=== PATIENT | female | born 1980 | race Caucasian/White ===

== ENCOUNTER 2021-08-01 14:48 | Outpatient (CLI) | payer OTHER | END 2021-08-01 14:49 | disposition home or self-care (01) | LOC: BICMAMMO 14:48 | PROVIDERS: ATTEND Nurse Practitioner Family | DX: Z09 Encounter for follow-up examination after completed treatment for conditions other than malignant neoplasm (principal); N63.20 Unspecified lump in the left breast, unspecified quadrant; N64.4 Mastodynia; R92.1 Mammographic calcification found on diagnostic imaging of breast; Z98.82 Breast implant status | CPT/HCPCS: 77066; G0279 ==

== ENCOUNTER 2021-08-30 07:36 | Outpatient (CLI) | payer OTHER ==
[2021-08-30] MEDS ORDERED: Iopamidol-370 76% 500 ML 1 ML ONE (09:49)
== END 2021-08-30 07:37 | disposition home or self-care (01) ==
LOC: BICCT 07:36
PROVIDERS: ATTEND Nurse Practitioner Family
DX: Z09 Encounter for follow-up examination after completed treatment for conditions other than malignant neoplasm (principal); N20.0 Calculus of kidney; K59.09 Other constipation; R31.9 Hematuria, unspecified; R10.84 Generalized abdominal pain; K44.9 Diaphragmatic hernia without obstruction or gangrene
CPT/HCPCS: 74177; Q9967

== ENCOUNTER 2023-03-11 14:24 | Outpatient (CLI) | payer BC | END 2023-03-11 14:25 | disposition home or self-care (01) | LOC: ULT 14:24 | PROVIDERS: ATTEND Family Medicine | DX: E04.1 Nontoxic single thyroid nodule (principal); E04.2 Nontoxic multinodular goiter | CPT/HCPCS: 76536 ==

== ENCOUNTER → 2023-04-28 | Day surgery (SDC) | payer BC | END | disposition home or self-care (01) | LOC: ULT 08:00 | PROVIDERS: ATTEND Student in an Organized Health Care Education/Training Program | PROC: 0GBG3ZX Excision of Left Thyroid Gland Lobe, Percutaneous Approach, Diagnostic (ICD-10-PCS; principal; 2023-04-28) | DX: E04.1 Nontoxic single thyroid nodule (principal); F41.0 Panic disorder [episodic paroxysmal anxiety]; Z87.891 Personal history of nicotine dependence; Z88.5 Allergy status to narcotic agent; Z87.59 Personal history of other complications of pregnancy, childbirth and the puerperium; Z98.890 Other specified postprocedural states; Z79.899 Other long term (current) drug therapy | CPT/HCPCS: 10005; 88173; 88305 ==